=== PATIENT | female | born 2000 | race Caucasian/White ===

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

== ENCOUNTER → 2018-10-29 | Emergency (ER) | payer OTHER ==
[~2018-10-29] VITALS: Ht 152.4 cm; Wt 62.6 kg
[~2018-10-29] MED LIST: PRENA1 TRUE CO1 EACH
== END | disposition home or self-care (01) ==
LOC: ER 22:50
DX: O20.0 Threatened abortion (principal); O26.891 Other specified pregnancy related conditions, first trimester; R51 Headache; Z34.01 Encounter for supervision of normal first pregnancy, first trimester

== ENCOUNTER 2020-06-28 07:34 | Emergency (ER) | payer OTHER ==
[~2020-06-28] VITALS: Ht 152.4 cm; Wt 59.0 kg
== END 2020-06-28 13:39 | disposition home or self-care (01) ==
LOC: ER 07:34
DX: K29.70 Gastritis, unspecified, without bleeding (principal)

== ENCOUNTER 2020-12-02 12:21 | Emergency (ER) | payer OTHER ==
[~2020-12-02] VITALS: Ht 152.4 cm; Wt 56.7 kg
[~2020-12-02 12:21] MED LIST changes: +TUSSI PRES-B L480 ML PO; +ZITHROMAX TRI-500 MG PO
[2020-12-02] MEDS ORDERED: ACETAMINOPHEN650 M2 PO (18:08)
[2020-12-02] MEDS ORDERED: MELATONIN10 MG PO (18:08)
[2020-12-02] MEDS ORDERED: COLCHICINE0.6 M1 PO (18:08)
[2020-12-02] MEDS ORDERED: AZITHROMYCIN500 MG PO (18:08)
[2020-12-02] MEDS ORDERED: IVERMECTIN3 MG PO (18:08)
== END 2020-12-02 18:46 | disposition home or self-care (01) ==
LOC: ER 12:21
DX: U07.1 COVID-19 (principal); B34.9 Viral infection, unspecified

== ENCOUNTER 2021-12-28 09:31 | Emergency (ER) | payer OTHER ==
[~2021-12-28] VITALS: Ht 152.4 cm; Wt 56.7 kg
[~2021-12-28 09:31] MED LIST changes: +ACETAMINOPHEN650 M2 PO; +AZITHROMYCIN500 MG PO; +COLCHICINE0.6 M1 PO; +IVERMECTIN3 MG PO; +MELATONIN10 MG PO
== END 2021-12-28 13:46 | disposition home or self-care (01) ==
LOC: ER 09:31
DX: H02.841 Edema of right upper eyelid (principal)

== ENCOUNTER 2024-03-07 09:15 | Emergency (ER) | payer OTHER ==
[~2024-03-07] VITALS: Ht 152.4 cm; Wt 56.7 kg
[2024-03-07] MEDS ORDERED: KETOROLAC TROMETHAMINE 30 MG VIAL IM STA (09:26)
[2024-03-07] MEDS ORDERED: CEFTRIAXONE SODIUM 1,000 MG VIAL IM STA (09:26)
== END 2024-03-07 09:55 | disposition home or self-care (01) ==
LOC: ER 09:16
DX: H00.011 Hordeolum externum right upper eyelid (principal)
CPT/HCPCS: 96372; J0696; J1885

== ENCOUNTER 2024-12-13 15:40 | Emergency (ER) | payer OTHER ==
[~2024-12-13] VITALS: Ht 152.4 cm; Wt 50.3 kg
[2024-12-13 15:47] VITALS: BP 123/65; O2SAT 100
[2024-12-13] MEDS ORDERED: 0.9 % SODIUM CHLORIDE 1,000 ML IV STA (17:44)
[2024-12-13] MEDS ORDERED: ONDANSETRON HCL 2 MG/ML VIAL IV STA (17:48)
[2024-12-13] MEDS ORDERED: FAMOTIDINE/PF 20 MG in 0.9 % SODIUM CHLORIDE 8 ML IV STA (17:49)
[2024-12-13] MEDS ORDERED: NAPROXEN 500 MG TABLET PO STA (17:49)
[2024-12-13 17:55] LABS: BASO % 0.7 % (0.1-1.2); EOS # 0.25 (0.04-0.54); EOS % 3.4 % (0.7-7.0); LYMPH # 2.47 (1.18-3.74); LYMPH % 33.6 % (19.3-53.1); MEAN PLATELET VOLUME 9.80 fl (9.4-12.4); MONO # 0.60 (0.24-0.82); MONO % 8.2 % (4.7-12.5); NEUT # 3.97 (1.56-6.13); NEUT % 53.8 % (34.0-71.1); RED CELL DISTRIBUTION WIDTH 13.6 % (11.6-14.4)
[2024-12-13 18:33] LABS: ALT/SGPT 37.0 U/L (12-78); AST/SGOT 19.0 U/L (15-37); BILIRUBIN TOTAL 0.56 mg/dL (0.3-1.2); BUN CREA RATIO 16.0 (7.0-25.0); CREATININE SERUM 0.58 mg/dL (0.55-1.02); GFR 125.66; GLOBULINA 3.6 G/DL (2.4-3.5); GLUCOSE FASTING 74.0 mg/dL (65-100); OSMOLALITY SERUM 279.0 MOSM/KG (275-295)
[2024-12-13 18:43] LABS: URINE APPEARANCE Clear; URINE BILIRRUBIN Negative (NEGATIVE); URINE BLOOD NHT; URINE COLOR Yellow; URINE GLUCOSE Negative (NEGATIVE); URINE KETONE Negative (NEGATIVE); URINE LEUKOCYTE Negative; URINE NITRATE Negative; URINE PROTEIN Negative (NEGATIVE); URINE UROBILINOGEN 0.2 E.U./dl
[2024-12-13 18:50] LABS: URINE BACTERIA 198.0 uL (0.0-1933); URINE EPITHELIAL CELLS 10.4 uL (0.0-38.8); URINE RBC 16.2 uL (0.0-20.8); URINE WBC 1.8 uL (0.0-23.2)
[2024-12-13 18:52] LABS: URINE CAST 0.00 uL (0.0-1.40)
== END 2024-12-13 20:28 | disposition home or self-care (01) ==
LOC: ER 15:40
PROVIDERS: General Practice
DX: R11.10 Vomiting, unspecified (principal); N94.6 Dysmenorrhea, unspecified